=== PATIENT | male | born 1935 | race Caucasian/White ===

== ENCOUNTER 2017-02-22 15:18 | Emergency (ER) | payer OTHER ==
--- NOTE | ~2017-02-22 | CT71 ---
[facility] A Service [facility] RADIOLOGY TEXT RESULTS PATIENT: GAYLA ESPINO LOCATION: SED : 33 UNIT #: [id number] AGE: [address]: Tomasz Brennan MD SEX: M ORDER DR: [id number] [place] [id number] MR#: [id number] Acc #: [id number] NAME: GAYLA ESPINO. : 1935 SEX: M STUDY DATE/TIME: 02/22/2017 15:59 UNIT: SED ROOM: STUDY DESCRIPTION: CT Head Wo Contrast Attending Physician: Tomasz Brennan M.D. Ordering Physician: Tomasz Brennan M.D. MEDICAL IMAGING REPORT This report is preliminary unless electronic signature is present. EXAM Noncontrast CT head. DATE OF EXAM 02/22/2017 HISTORY 81-year-old male with diminished left hearing after falling 2 months ago. Hit side of left head. Symptoms worse today. COMPARISON None. TECHNIQUE NOTE: This CT exam was performed with one or more of the following radiation dose reduction techniques: automatic exposure control, adjustment of mA and/or kV according to patient size, and iterative reconstruction. FINDINGS No displaced calvarial fracture is seen. Mastoid air cells appear clear. Advanced degenerative change is seen at the left temporomandibular joint. Moderate intracranial carotid artery calcifications are present. There is moderate patchy bilateral ethmoid sinus mucosal thickening. There is marked opacification of right frontal sinus. There is mild generalized parenchymal atrophy with compensatory prominence of ventricles and extraaxial spaces. No acute intracranial hemorrhage, mass lesion, mass effect or midline shift is seen. There is no convincing CT evidence of acute or evolving infarct. IMPRESSION 1. No acute intracranial findings. [facility] A Service [facility] RADIOLOGY TEXT RESULTS PATIENT: GAYLA ESPINO LOCATION: SED : 33 UNIT #: [id number] AGE: [address]: Tomasz Brennan MD SEX: M ORDER DR: 2. The mastoid air cells appear clear, and no displaced calvarial fracture is seen. 3. Mild generalized atrophy. 4. Paranasal sinus disease, with marked opacification of the right frontal sinus. Correlate for sinusitis symptoms. 5. Advanced degenerative change of the left temporal mandibular joint. Dictated by... Raissa Hernandez M.D. THIS IS AN ELECTRONICALLY VERIFIED REPORT Raissa Hernandez M.D. at 02/28/2017 8:32 AM GEORGE/giovana TD: 02/22/2017 17:38 JOB #: [id number] MEDICAL IMAGING REPORT Page 1 of 1
[~2017-02-22 15:18] MED LIST: ADVAIR 250-501 EAC1 INH; ALBUTEROL17 GM INH; AMARYL2 MG PO; CLOPIDOGREL75 MG PO; COZAAR100 MG PO; HYDROCODON-ACE1 EAC9 PO; IPRATR-ALBUTEROL3 ML INH; ISOSORBIDE MONO60 M1 PO; KLOR-CON SPRIN10 MEQ PO; LASIX20 MG PO; LEVEMIR100 UNITS/ SUBQ; LEVOTHYROXINE75 MC1 PO; LIPITOR20 MG PO; METFORMIN HCL500 M3 PO; SYMBICORT 160/4.6 G1 INH
[2017-02-22 15:33] LABS: BASOPHIL% 0.3 % (0-2.5); EOSINOPHIL# 0.4 X10e3 (0-0.7); EOSINOPHIL% 8.2 % (0.0-7.0); HEMATOCRIT 37.4 % (38.0-50.0); HEMOGLOBIN 12.3 gm/dL (13.0-16.0); LYMPHOCYTE# 0.9 X10e3 (1.0-3.5); LYMPHOCYTE% 19.1 % (17.0-45.0); MEAN CELL VOLUME 75.8 FL (83-96); MEAN CORPUSCULAR HEMOGLOBIN 24.9 PG (28-34); MEAN CORPUSCULAR HGB CONC 32.8 g/dL (30-36); MEAN PLATELET VOLUME 8.2 FL (6.5-11.5); MONOCYTE# 0.5 X10e3 (0-1.0); MONOCYTE% 11.2 % (3.0-12.0); NEUTROPHIL# 2.7 X10e3 (1.5-7.1); NEUTROPHIL% 61.2 % (40-75); RED BLOOD COUNT 4.93 X10e (3.90-5.60); RED CELL DISTRIBUTION WIDTH 22.6 % (11.0-15.5); WHITE BLOOD COUNT 4.5 X10e3 (4.0-10.5)
[2017-02-22 15:45] LABS: INR 1.1; PROTHROMBIN TIME (PATIENT) 12.8 SECONDS (9.5-12.4)
[2017-02-22 15:53] LABS: ALBUMIN SERUM 3.7 g/dL (3.5-5.0); BILIRUBIN, DIRECT 0.1 mg/dL (0.0-0.2); BILIRUBIN,INDIRECT 0.6 mg/dL (0.0-0.9); BILIRUBIN,TOTAL 0.7 mg/dL (0.2-2.0); CALCIUM SERUM 7.9 mg/dL (8.4-10.2); DIFF IND YES; GLOM FILT RATE Estimated 69.3 mL/min (>60); PLATELET COUNT 60 X10e3 (140-420); POTASSIUM 3.7 mmol/L (3.5-5.1); PROTEIN TOTAL SERUM 7.6 g/dL (6.0-8.3)
[2017-02-22 15:54] LABS: PLATELET ESTIMATE DECREASED (NORMAL)
== END 2017-02-22 16:56 | disposition home or self-care (01) ==
LOC: SED 15:18
PROVIDERS: Emergency Medicine
DX: H91.92 Unspecified hearing loss, left ear (principal); H93.12 Tinnitus, left ear; D69.6 Thrombocytopenia, unspecified; I10 Essential (primary) hypertension; J44.9 Chronic obstructive pulmonary disease, unspecified; E11.9 Type 2 diabetes mellitus without complications
CPT/HCPCS: 36415; 70450; 80048; 80076; 85025; 85610; 99284

== ENCOUNTER 2017-02-26 10:06 | Inpatient (IN) | payer OTHER ==
--- NOTE | ~2017-02-26 | HP ---
Unit #: [id number] #: [id number] Patient: GAYLA ESPINO [id number] [address] [place], [place] [address] [id number] I MR#: [id number] NAME: GAYLA ESPINO. ROOM: 462 Age: 81 Sex: M Admission Date: 02/26/2017 : 1935 Attending Physician: Parviz Blanton M.D. HISTORY AND PHYSICAL CHIEF COMPLAINT Abdominal pain. HISTORY OF PRESENT ILLNESS This is an 81-year-old male with past medical history of coronary artery disease, COPD, diabetes, who presented with a complaint of abdominal pain and distention, associated with nausea, inability to eat and was found to have colitis and ileus. I am seeing the patient at the bedside, complaining of no abdominal pain, has diffuse tenderness. REVIEW OF SYSTEMS As per history of present illness. PAST MEDICAL HISTORY Coronary artery disease, COPD, diabetes. MEDICATION Symbicort, metformin, Klor-Con, isosorbide. SOCIAL HISTORY Ex-smoker, no alcohol, no drug abuse. FAMILY HISTORY None as per record. PHYSICAL EXAMINATION VITAL SIGNS: Temperature 98. Pulse 87. Respiration 12. Blood pressure 130/70. NEUROLOGICAL: Awake, alert and oriented. No neuro deficit. HEENT: PERRLA. EOMI. NECK: Supple. No JVD. CHEST: Bilateral air entry. Bilateral mild rhonchi. GI: Nontender, soft, bowel sounds positive. EXTREMITIES: No edema. DIAGNOSTIC STUDIES LABORATORY: Labs have been reviewed. IMAGING: Has been reviewed. ASSESSMENT Abdominal pain, nausea, vomiting, inability to keep anything down because of the nausea and vomiting and dehydration and possible small bowel obstruction Unit #: [id number] #: [id number] Patient: GAYLA ESPINO PLAN Plan is to admit the patient/surgical consultation. Please see orders of detailed plan. Dictated by Mariana Fischer/sonny TD: 03/01/2017 22:42 JOB #: [id number] HISTORY AND PHYSICAL Page 1 of 1 X Parviz Blanton MD X HISTORY AND PHYSICAL
--- NOTE | ~2017-02-26 | CO ---
Unit #: [id number] #: [id number] Patient: GAYLA ESPINO [id number] [address] [place], [place] [address] [id number] I MR#: [id number] NAME: GAYLA ESPINO. ROOM: 462 Age: 81 Sex: M Admission Date: 02/26/2017 : 1935 Attending Physician: Parviz Blanton M.D. Consultation Date: 02/26/2017 CONSULTATION REPORT BRIEF HISTORY The patient is an 81-year-old gentleman who presents with recent history of abdominal pain, distention and loose bowel movements. He has had diarrhea over the last four days. No nausea or vomiting. No fevers. No chills. No history of similar type pain. PAST HISTORY Past history of one of cardiac dysfunction, diabetes, COPD. He has had no previous operations. MEDICATIONS Symbicort, metformin, Klor-Con and isosorbide. SOCIAL HISTORY No smoking and no alcohol. REVIEW OF SYSTEMS No cardiopulmonary complaints at this times. Ten systems reviewed and negative. PHYSICAL EXAMINATION GENERAL: Awake, alert and appropriate. Currently no distress. HEENT: Unremarkable. NECK: Supple. No JVD. Trachea midline. LUNGS: Clear to auscultation. Bilateral breath sounds symmetric. CARDIOVASCULAR: Regular rhythm. ABDOMEN: Soft. It is mildly distended but no rebound, no masses and no hernias. EXTREMITIES: No clubbing, cyanosis or edema. DIAGNOSTIC STUDIES LABORATORY STUDIES: Show a normal white count. Hemoglobin 12.3. Chemistries show an elevated glucose but normal liver function studies. IMAGING STUDIES: CT scan is normal for any acute abnormality. He does have a very small nonincarcerated inguinal hernia. ASSESSMENT AND PLAN Abdominal pain, unknown etiology. PLAN Recommend upper and lower endoscopy. Discussed in detail. Unit #: [id number] #: [id number] Patient: GAYLA ESPINO Dictated by... Mariana Orozco/luke TD: 02/27/2017 08:51 JOB #: [id number] CONSULTATION REPORT Page 1 of 1 X Ivan Alexander MD X CONSULTATION REPORT
--- NOTE | ~2017-02-26 | DS ---
Unit #: [id number] #: [id number] Patient: GAYLA ESPINO [id number] [address] [address] [id number] I MR#: [id number] NAME: GAYLA ESPINO. ROOM: 462 Age: 81 Sex: M Admission Date: 02/26/2017 : 1935 Discharge Date: Attending Physician: Parviz Blanton M.D. DISCHARGE SUMMARY DISCHARGE DIAGNOSES 1. Small bowel obstruction. 2. Acute colitis with crypt abscess. 3. Status post esophagogastroduodenoscopy and colonoscopy. 4. Coronary artery disease. 5. Thrombocytopenia. 6. Likely obstructive sleep apnea. 7. History of chronic obstructive pulmonary disease. CHIEF COMPLAINT/HISTORY OF PRESENT ILLNESS Patient was admitted for abdominal pain. Was diagnosed with crypt abscess and acute colitis. Currently will be started on antibiotics. I saw him this morning. He is tolerating regular diet. PHYSICAL EXAMINATION VITAL SIGNS: Temperature 98, pulse rate 70, respirations 12, blood pressure 130/70. NEUROLOGIC: Awake, alert, oriented. No neuro deficits. HEENT: PERRLA plus EOMI. NECK: Supple. No JVD. CHEST: Bilateral air entry. Bilateral mild rhonchi. GI: Nontender, soft. Bowel sounds positive. EXTREMITIES: No edema. SKIN: No rash. No ulcer. LYMPHATICS: No lymphadenopathy. DISCHARGE MEDICATIONS 1. Ventolin 2 puffs q.4 hours p.r.n. 2. Symbicort 160/4.5 two puffs b.i.d. 3. DuoNeb q.4 hours p.r.n. 4. Metformin 500 mg p.o. b.i.d. 5. Lasix 40 mg p.o. daily. 6. Lipitor 20 mg p.o. daily. 7. Cozaar 100 mg p.o. daily. 8. Insulin Levemir 40 units subcu at bedtime. 9. Hydrocodone 7.5 mg 1 tablet b.i.d. 10. Plavix 75 mg p.o. daily. 11. Potassium 10 mEq p.o. daily. 12. Glimepiride 2 mg p.o. daily. 13. Levothyroxine 75 mcg p.o. daily. 14. Isosorbide 60 mg p.o. daily. 15. Levaquin 500 p.o. daily for 10 days. 16. Flagyl 500 mg p.o. q.8 hours for 10 days. Unit #: [id number] #: [id number] Patient: GAYLA ESPINO CONDITION UPON DISCHARGE Patient hemodynamically stable. FOLLOWUP 1. Follow with general surgery. 2. Follow with me in 2 weeks in the office. 3. Follow with primary care physician. Dictated by... Mariana Fischer TD: 03/02/2017 12:33 JOB #: [id number] DISCHARGE SUMMARY Page 1 of 1 X Parviz Blanton MD X DISCHARGE SUMMARY
--- NOTE | ~2017-02-26 | OR ---
Unit #: [id number] #: [id number] Patient: GAYLA ESPINO [id number] [address] [place], [place] [address] [id number] I MR#: [id number] NAME: GAYLA ESPINO. ROOM: 462 Date of Procedure: 02/27/2017 Admission Date: 02/26/2017 Surgeon: Jimbo Tong M.D. : 1935 Attending Physician: Parviz Blanton M.D. OPERATIVE REPORT PREOPERATIVE DIAGNOSES Abdominal pain and diarrhea. POSTOPERATIVE DIAGNOSES 1. Normal upper endoscopy. 2. Segmental colitis. PROCEDURE PERFORMED Esophagogastroduodenoscopy and colonoscopy to cecum with biopsy x8. ANESTHESIA Monitored anesthesia. INDICATIONS FOR PROCEDURE Mr. Espino is an 81-year-old gentleman, who was hospitalized with abdominal pain and diarrhea. DESCRIPTION OF PROCEDURE The patient was transported from his hospital room to the endoscopy suite. After appropriate monitoring and positioning, he was sedated by the anesthesiologist. Bite block was placed. Endoscope was passed through the oral cavity into the esophagus. Under direct vision, we passed through the esophagus into the stomach, insufflated the stomach, and passed through the pylorus down to the second and third portion of duodenum. Duodenum and stomach were normal. He had a few petechiae in the distal esophagus, but was otherwise normal and the larynx was normal. After completion of the upper scope, the patient was repositioned. On rectal examination, he had solid stool in the vault. There was no local anorectal pathology. The colonoscope was passed and with the irrigation and insufflation, I was able to pass through a very poorly prepped colon to the cecum. On antegrade visualization, he had 2 areas of segmental colitis, one at 35 cm which was not circumferential, but markedly inflamed. Biopsies x2 were taken from this area. In the ascending colon above the ileocecal valve but below the hepatic flexure, there was an area that was circumferential and extended for several centimeters that was very inflamed and erythematous. Proximal to this area in the cecum; however, the mucosa was normal. This did not appear because of the distribution to be ischemic. Biopsies x6 from this area were taken in retrograde visualization, these were the only 2 areas of abnormality seen; however, due to the large residual stool volume, some small areas could have been overlooked as well as some small polyps. The patient tolerated the procedure well and transported to recovery in stable condition. He Unit #: [id number] #: [id number] Patient: GAYLA ESPINO will be readmitted to his hospital room and maintained on clear liquids for now. I will recheck labs, await the biopsies, and the patient will probably to have further bowel prep and a better more complete colonoscopy. Dictated by... Mariana Lee/elle TD: 02/27/2017 23:24 JOB #: [id number] OPERATIVE REPORT Page 1 of 1 X Jimbo Tong MD PROCEDURE OPERATIVE NOTE
--- NOTE | ~2017-02-26 | CR72 ---
[facility] A Service of [facility] RADIOLOGY TEXT RESULTS PATIENT: GAYLA ESPINO LOCATION: [place] [address] : [birth year] UNIT #: [id number] AGE: [address]: Parviz Blanton MD SEX: M ORDER DR: [id number] [facility] [address] [facility]. [place], [place] [address] [id number] I MR#: [id number] Acc #: [id number] NAME: GAYLA ESPINO. : 1935 SEX: M STUDY DATE/TIME: 02/26/2017 13:11 UNIT: C3A PCU ROOM: [facility] STUDY DESCRIPTION: CR Chest Single View Portable Attending Physician: Parviz Blanton M.D. Ordering Physician: Parviz Blanton M.D. MEDICAL IMAGING REPORT This report is preliminary unless electronic signature is present EXAM AP portable chest DATE OF EXAMINATION 02/26/2017 HISTORY Shortness of breath with nausea, vomiting, diarrhea and abdominal pain for 2 days. COPD. COMPARISON AP portable chest 08/15/2016. CT chest PE protocol 08/15/2016. FINDINGS Advanced emphysematous changes with peripheral interstitial pulmonary fibrosis. The features of interstitial fibrosis are most prominent within the bilateral lower lobes. The heart size is enlarged but stable. No definite acute airspace disease is seen. No pleural effusion or pneumothorax is identified. IMPRESSION 1. Advanced emphysema and advanced interstitial pulmonary fibrosis changes, thought to be similar to the 08/15/2016 and 06/06/2016 examination. 2. Stable cardiomegaly. Dictated by... Raissa Hernandez M.D. THIS IS AN ELECTRONICALLY VERIFIED REPORT Raissa Hernandez M.D. at 02/28/2017 8:31 AM EMILY/italo [facility] A Service of [facility] RADIOLOGY TEXT RESULTS PATIENT: GAYLA ESPINO LOCATION: [place] [address] : [birth year] UNIT #: [id number] AGE: [address]: Parviz Blanton MD SEX: M ORDER DR: TD: 02/26/2017 16:29 JOB #: [id number] MEDICAL IMAGING REPORT Page 1 of 1 COPY
--- NOTE | ~2017-02-26 | CR7 ---
[facility] A Service of [facility] RADIOLOGY TEXT RESULTS PATIENT: GAYLA ESPINO LOCATION: [facility] : [birth year] UNIT #: [id number] AGE: [address]: Parviz Blanton MD SEX: M ORDER DR: [id number] [facility] [address] [facility]. [place], [place] [address] [id number] I MR#: [id number] Acc #: [id number] NAME: GAYLA ESPINO. : 1935 SEX: M STUDY DATE/TIME: 02/26/2017 13:14 [facility]: [facility] STUDY DESCRIPTION: CR Abdomen Single AP View Attending Physician: Parviz Blanton M.D. Ordering Physician: Parviz Blanton M.D. MEDICAL IMAGING REPORT This report is preliminary unless electronic signature is present EXAM Supine radiographs of the abdomen HISTORY Question ileus. Nausea, vomiting, diarrhea. 2-day duration. TECHNIQUE 2 AP radiographs of the abdomen are presented COMPARISON CT abdomen and pelvis 02/25/2017 FINDINGS Interstitial fibrotic changes at lung bases similar to the prior CT examination. Heart upper limits of normal in size. The bowel gas pattern shows continued gaseous distension of colon to level of the distal colon. No free air. There are mildly air distended loops of small bowel suggested. Prior CT examination showed no obstructing process. Radiographic appearance more consistent with ileus. Continued followup to resolution is recommended. Degenerative changes in the spine and bilateral hips. Dictated by... Ivan Duke M.D. THIS IS AN ELECTRONICALLY VERIFIED REPORT Ivan Duke M.D. at 02/26/2017 6:37 PM HECTOR/roderick TD: 02/26/2017 17:01 JOB #: [id number] MEDICAL IMAGING REPORT [facility] A Service of [facility] RADIOLOGY TEXT RESULTS PATIENT: GAYLA ESPINO LOCATION: [facility] - : [birth year] UNIT #: [id number] AGE: [address]: Parviz Blanton MD SEX: M ORDER DR: Page 1 of 1 COPY
[2017-02-26] MEDS ORDERED: ISOSORBIDE MONO60 M1 PO (13:11)
[2017-02-27 14:03] LABS: HEMATOCRIT 34.9 % (38.0-50.0); HEMOGLOBIN 11.4 gm/dL (13.0-16.0); MEAN CELL VOLUME 76.2 FL (83-96); MEAN CORPUSCULAR HEMOGLOBIN 24.9 PG (28-34); MEAN CORPUSCULAR HGB CONC 32.7 g/dL (30-36); MEAN PLATELET VOLUME 8.9 FL (6.5-11.5); RED BLOOD COUNT 4.58 X10e (3.90-5.60); RED CELL DISTRIBUTION WIDTH 22.3 % (11.0-15.5); WHITE BLOOD COUNT 10.6 X10e3 (4.0-10.5)
[2017-02-27 14:04] LABS: ALBUMIN SERUM 3.3 g/dL (3.5-5.0); BILIRUBIN,TOTAL 0.8 mg/dL (0.2-2.0); CALCIUM SERUM 7.2 mg/dL (8.4-10.2); GLOM FILT RATE Estimated 69.3 mL/min (>60); POTASSIUM 3.4 mmol/L (3.5-5.1); PROTEIN TOTAL SERUM 7.2 g/dL (6.0-8.3)
[2017-02-28 03:29] LABS: HEMATOCRIT 31.6 % (38.0-50.0); HEMOGLOBIN 10.3 gm/dL (13.0-16.0); MEAN CELL VOLUME 75.4 FL (83-96); MEAN CORPUSCULAR HEMOGLOBIN 24.7 PG (28-34); MEAN CORPUSCULAR HGB CONC 32.7 g/dL (30-36); MEAN PLATELET VOLUME 8.4 FL (6.5-11.5); RED BLOOD COUNT 4.19 X10e (3.90-5.60); WHITE BLOOD COUNT 8.4 X10e3 (4.0-10.5)
[2017-02-28 04:00] LABS: ALBUMIN SERUM 2.7 g/dL (3.5-5.0); CALCIUM SERUM 7.1 mg/dL (8.4-10.2); CREATININE SERUM 0.8 mg/dL (0.6-1.4); GLOM FILT RATE Estimated 82.6 mL/min (>60); MAGNESIUM 2.3 mg/dL (1.6-3.0); PHOSPHOROUS 1.6 mg/dL (2.5-4.6); PROTEIN TOTAL SERUM 6.2 g/dL (6.0-8.3)
[2017-03-02 03:20] LABS: BASOPHIL% 0.3 % (0-2.5); EOSINOPHIL# 0.4 X10e3 (0-0.7); EOSINOPHIL% 7.3 % (0.0-7.0); HEMATOCRIT 31.4 % (38.0-50.0); HEMOGLOBIN 10.2 gm/dL (13.0-16.0); LYMPHOCYTE# 1.6 X10e3 (1.0-3.5); LYMPHOCYTE% 30.7 % (17.0-45.0); MEAN CELL VOLUME 74.6 FL (83-96); MEAN CORPUSCULAR HEMOGLOBIN 24.3 PG (28-34); MEAN CORPUSCULAR HGB CONC 32.6 g/dL (30-36); MEAN PLATELET VOLUME 8.1 FL (6.5-11.5); MONOCYTE# 0.3 X10e3 (0-1.0); MONOCYTE% 6.5 % (3.0-12.0); NEUTROPHIL# 2.8 X10e3 (1.5-7.1); NEUTROPHIL% 55.2 % (40-75); RED BLOOD COUNT 4.21 X10e (3.90-5.60); RED CELL DISTRIBUTION WIDTH 22.3 % (11.0-15.5); WHITE BLOOD COUNT 5.1 X10e3 (4.0-10.5)
[2017-03-02 03:43] LABS: BUN/CREATININE RATIO 11.25; CALCIUM SERUM 7.6 mg/dL (8.4-10.2); CREATININE SERUM 0.8 mg/dL (0.6-1.4); GLOM FILT RATE Estimated 82.6 mL/min (>60); MAGNESIUM 2.1 mg/dL (1.6-3.0); POTASSIUM 3.4 mmol/L (3.5-5.1)
[2017-03-02 04:04] LABS: DIFF IND NO; PLATELET COUNT 62 X10e3 (140-420)
[2017-03-02] MEDS ORDERED: LEVAQUIN PO (13:35)
[2017-03-02] MEDS ORDERED: FLAGYL PO (13:35)
== END 2017-03-02 15:00 | disposition home or self-care (01) | DRG 386 ==
LOC: CEDOF 10:06 → C3A PCU 11:52 → C4C 20:59
PROVIDERS: Internal Medicine; Specialist
PROC: 0DJ08ZZ Inspection of Upper Intestinal Tract, Via Natural or Artificial Opening Endoscopic (ICD-10-PCS; principal; 2017-02-27 16:30)
PROC: 0DBK8ZX Excision of Ascending Colon, Via Natural or Artificial Opening Endoscopic, Diagnostic (ICD-10-PCS; 2017-02-27 16:30)
PROC: 0DBH8ZX Excision of Cecum, Via Natural or Artificial Opening Endoscopic, Diagnostic (ICD-10-PCS; 2017-02-27 16:30)
DX: K50.114 Crohn's disease of large intestine with abscess (principal); D69.6 Thrombocytopenia, unspecified; J44.9 Chronic obstructive pulmonary disease, unspecified; K50.112 Crohn's disease of large intestine with intestinal obstruction; I25.10 Atherosclerotic heart disease of native coronary artery without angina pectoris; G47.33 Obstructive sleep apnea (adult) (pediatric); E11.9 Type 2 diabetes mellitus without complications; R11.2 Nausea with vomiting, unspecified; E86.0 Dehydration; Z79.84 Long term (current) use of oral hypoglycemic drugs
CPT/HCPCS: 71010; 74000; 80048; 80053; 82150; 82607; 82728; 82746; 82747; 82947; 83540; 83550; 83605; 83690; 83735; 84100; 84132; 85025; 85027; 88305; 94640; 94760; C9113; J1650; J1956